=== PATIENT | male | born 1960 | race Caucasian/White ===

== ENCOUNTER 2025-01-20 10:51 | Emergency (ER) | payer MEDICARE ==
[~2025-01-20] VITALS: Ht 175.3 cm; Wt 90.7 kg
--- NOTE | 2025-01-20 11:08 | ERN ---
ED Note History of Present Illness Stated Complaint: NUMBNESS Chief Complaint: Numbness Time Seen by MD: 11:03 Time Seen by Midlevel: 11:05 Dictation: Mr. Malik is a 64 year old gentleman with history of HTN, CKD, and BPH (prostate surgery in [place] 3 months ago) who presented to the emergency department this morning for evaluation of headache. He reports headache and int ermittent right arm numbness which began Thursday after playing tennis. He attributed the symptoms to eat exhaustion. He states that symptoms persisted prompting him to come to the emergency department this morning. He states that he was told 2-3 years ago that he should start antihypertensive therapy but decided against it. He states that he is very healthy and works out daily. He denies use of alcohol, tobacco, or recreational drugs. He states he has no PCP and takes only supplements. He also mentions that he has had some heartburn at times. He denies fever, chills, shortness of breath, cough, chest pain, palpitations, edema, abdominal pain, nausea, vomiting, hematemesis, constipation, diarrhea, melena, hematochezia, dysuria, headache, dizziness, ataxia, dysarthria, dysphasia, vision changes or focal weakness. Allergies: Coded Allergies: No Known Drug Allergies (Unverified Allergy, Unknown, 01/20/25) Past Medical History Past Medical History: Hypertension, Other Additional Past Medical Hx: prostate, ckd Surgical History: Other Surgical History Other: prostate sx, hernia repair PSYCH History: no pertinent psych hx Social History: Negative, Lives alone RN Note Reviewed/Agreed w/PFSH: Yes Review of System Dictation REVIEW OF SYSTEMS: CONSTITUTIONAL: Patient denies fevers, chills, sweats and weight changes. EYES: Patient denies any visual symptoms. EARS, NOSE, AND THROAT: No difficulties with hearing. No symptoms of rhinitis or sore throat. CARDIOVASCULAR: Patient denies chest pains, palpitations, orthopnea and paroxysm al nocturnal dyspnea. Reports I repeated for pressure readings in states he has been told in the past that he should be on some antihypertensive medication. RESPIRATORY: No dyspnea on exertion, no wheezing or cough. GI: No nausea, vomiting, diarrhea, constipation, abdominal pain, hematochezia or melena. Reports occasional gastritis; "heart burn". : No urinary hesitancy or dribbling. No nocturia or urinary frequency. No abnormal urethral discharge. MUSCULOSKELETAL: No myalgias or arthralgias. NEUROLOGIC: No chronic headaches, no seizures. Patient denies tingling or weakn ess. Reports intermittent tingling to right arm. PSYCHIATRIC: Patient denies problems with mood disturbance. No problems with anxiety. ENDOCRINE: No excessive urination or excessive thirst. DERMATOLOGIC: Patient denies any rashes or skin changes. Initial Vital Sign VS Vital Signs Date Time Temp Pulse Resp B/P (MAP) Pulse Ox O2 Delivery O2 Flow Rate FiO2 01/20/25 10:57 97.5 90 16 198/99 100 Room Air 0 01/20/25 11:03 21 Physical Exam Dictation Vital signs: Reviewed. Afebrile Constitutional: No acute distress. Non-toxic appearing. Head/Face: Normocephalic, atraumatic. Eyes: Periorbital areas with no swelling, redness, or edema. Lids and lashes are normal. Conjunctival injection is absent. Sclera anicteric. Pupils equal, round, reactive to light. ENT: Pinnas intact and no signs of trauma or erythema. Ear canals clear and no discharge. TMs no erythema. No nasal discharge or bleeding noted. Oropharynx with no exudate, redness, swelling, masses, exudates, or evidence of obstruction. Uvula midline. Mucous membranes slightly dry Neck: Trachea midline, no masses palpated, and no cervical lymphadenopathy. No swelling. Supple, full range of motion. Chest/Axilla: No tenderness, no crepitus, no paradoxical movement, no retractions. Cardiovascular: Regular rate, regular rhythm, no murmur, no gallops. Symmetric pulses. No peripheral edema. Repeat BP 170/88. Twelve lead EKG reflects a sinus rhythm without ST elevation or depression. Respiratory: Respirations even and unlabored. Lung sounds clear; no wheezes, rales or rhonchi. Room air SpO2 99%. Gastrointestinal: Inspection is normal. No distention is appreciated. Bowel sounds are normal. No mass or organomegaly . There is no tenderness. No rebound. No rigidity. No voluntary or involuntary guarding. No Abbasi's sign. Neurological: Normal speech, gross motor function intact, gross sensory function intact. No focal weakness/Paresthesia. NIHSS=0 Musculoskeletal/Extremities: All extremities have full range of motion, no pain or tenderness on palpation. Symmetric pulses. Integumentary: Intact. Skin is normal color, warm and dry. Cap refill less than 3 seconds. Results (Laboratory/Radiology) Laboratory/Radiology Laboratory Tests Test 01/20/25 11:26 White Blood Count 8.8 K/uL (4.8-10.8) Red Blood Count 4.97 MIL/uL (4.50-6.20) Hemoglobin 13.9 g/dL (14.0-18.0) L Hematocrit 42.6 % (42-54) Mean Corpuscular Volume 85.7 fL (79-99) Mean Corpuscular Hemoglobin 28.0 pg (27.0-33.0) Mean Corpuscular Hemoglobin Concent 32.6 g/dL (32.0-36.0) Red Cell Distribution Width 13.9 % (11.0-15.5) Platelet Count 310 K/uL (130-400) Mean Platelet Volume 10.1 fL (7.5-10.5) Immature Granulocyte % (Auto) 0.3 % (0-1) Neutrophils (%) (Auto) 73.8 % (40.0-77.0) Lymphocytes (%) (Auto) 17.4 % (21.0-51.0) L Monocytes (%) (Auto) 6.3 % (3.0-13.0) Eosinophils (%) (Auto) 1.6 % (0.0-8.0) Basophils (%) (Auto) 0.6 % (0.0-5.0) Neutrophils # (Auto) 6.5 K/uL (1.8-7.7) Lymphocytes # (Auto) 1.5 K/uL (1.0-4.8) Monocytes # (Auto) 0.6 K/uL (0.1-1.0) Eosinophils # (Auto) 0.14 K/uL (0.00-0.70) Basophils # (Auto) 0.05 K/uL (0.00-0.20) Absolute Immature Granulocyte (auto 0.03 K/uL (0-1) Nucleated Red Blood Cells 0.0 % (0.0-0.19) Sodium Level 139 mmol/L (136-145) Potassium Level 4.1 mmol/L (3.5-5.1) Chloride Level 102 mmol/L (101-111) Carbon Dioxide Level 29 mmol/L (21-32) Blood Urea Nitrogen 19 mg/dL (7-18) H Creatinine 1.4 mg/dL (0.5-1.3) H Glomerular Filtration Rate Calc 55 mL/min (>90) Random Glucose 127 mg/dL (70-105) H Total Calcium 8.7 mg/dL (8.5-10.1) Total Bilirubin 0.9 mg/dL (0.2-1.0) Direct Bilirubin 0.1 mg/dL (0.0-0.3) Aspartate Amino Transf (AST/SGOT) 16 U/L (10-37) Alanine Aminotransferase (ALT/SGPT) 26 U/L (12-78) Alkaline Phosphatase 58 U/L (50-136) Troponin I High Sensitivity 10 ng/L (4-75) B-Type Natriuretic Peptide 16 pg/mL (0-100) Total Protein 7.3 g/dL (6.0-8.3) Albumin 3.7 g/dL (3.5-5.0) Labs Reviewed?: Yes EKG Comment: EKG Interpretation: Time Reviewed: 1114 Ventricular rate: 85 bpm OK Interval: 160 ms QRS duration: [address] segment elevation or depression. Clinical impression: Sinus rhythm EKG Reviewed and interpreted by Dr. Harkins X-RAY Comment: PATIENT: NATALY MALIK MR#: [id number] : 1960 SEX: M AGE: 64 LOCATION: [facility] ORDER 16 STATUS: REG REPORT#: [id number] SERVICE 111 REASON: sob ORDERING PHYSICIAN: MIO KIM NP PROCEDURE: CXR1VW - CHEST 1VW CHEST 1VW REASON: sob COMPARISON: None. FINDINGS: Single view of the chest was obtained. Lungs are clear. Heart size is normal. There is no pulmonary vascular congestion. Mediastinum and bony thorax appear unremarkable. IMPRESSION: 1. Normal single view chest x-ray. DICTATED BY: ANNA WEST MD DATE: 01/20/25 120 ELECTRONICALLY SIGNED BY: ANNA WEST MD DATE: 01/20/25 120 ED Course ED Course Orders Procedure Category Date Status Time 12 Lead Ekg Tracing- EKG 01/20/25 Complete Technical 11:06 Cbc With Differential LAB 01/20/25 Complete 11:06 Basic Metabolic Panel LAB 01/20/25 Complete 11:06 Hepatic Function Panel LAB 01/20/25 Complete 11:06 Troponin I High LAB 01/20/25 Complete Sensitivity 11:06 0.9% Nacl 500ml PHA 01/20/25 Complete Iv.Soln (Ns 500ml 11:30 B-Type Natriuretic LAB 01/20/25 Complete Peptide 11:06 Labetalol 20mg Syg PHA 01/20/25 Complete (Trandate 20mg Syg) 11:30 Urinalysis Profile LAB 01/20/25 Logged 11:15 Drug Screen Urine LAB 01/20/25 Logged 11:15 Chest 1vw RAD 01/20/25 Resulted 11:15 Current Medications Medications (Trade) Dose Ordered Sig/Allison Route PRN Reason Start Time Stop Time Status Last Admin Dose Admin Labetalol HCl (TRANdate 20MG SYG) 10 mg ONCE ONCE IV 01/20/25 11:30 01/20/25 11:17 DC Sodium Chloride 500 ml @ 0 mls/hr ONCE ONCE IV 01/20/25 11:30 01/20/25 11:17 DC Vital Signs Date Time Temp Pulse Resp B/P (MAP) Pulse Ox O2 Delivery O2 Flow Rate FiO2 01/20/25 11:14 97.7 81 12 170/88 99 Room Air* 0 21 01/20/25 11:03 97.5 90 16 198/99 100 Room Air* 0 21 01/20/25 10:57 97.5 90 16 198/99 100 Room Air 0 Uneventful ED course. Vital signs with downtrending blood pressure readings. Patient is calm/cooperative. Laboratory findings as noted below. No elevation of WBCs. H&H are stable. BUN/CR 19/1.4 (baseline unknown; history CKD), and glucose 127. Troponin negative. Twelve lead EKG reflects a sinus rhythm without ST elevation or depression. Chest x-ray unremarkable with clear lung yao. He continues to deny chest pain or shortness of breath. He denies focal paresthesia/weakness to extremities. Findings were discussed with patient and all questions were answered. Medical Decision Making MDM MDM: Differential diagnosis: hypertension, ACS, stroke Rationale: Tests considered and ordered secondary to shared decision making include: lab, xray, EKG Previous outside records reviewed: Old ER visits. Risk of complication and/or morbidity or mortality of patient management: None Medications-Per medication reconciliation Need for hospitalization: Patient does not meet criteria for hospitalization. Need for emergency major/minor surgery: No There are no social concerns with this patient. Prescription drug management: None Prescriptions will include symptomatic care Patient's prior external medical records from other ER visits were reviewed by me as indicated. Prior testing and results from previous visits were reviewed. Prior tests were taken into account with medical decision making and resource utilization, independent historian/historians were used to obtain complete medical history. I independently interpreted the test that were performed, results were reviewed by me and considered findings on radiology if ordered. Medical management and examination interpretation discussions were had by me with other qualified healthcare professionals as indicated for the patient's care. DX & DISP Disposition: Discharge Departure Impression: Primary Impression: Hypertension Condition: Stable Additional Instructions: You should schedule a follow up appointment with the primary care provider with in the next 3-5 days to evaluate and begin long-term blood pressure management. Avoid [id number] decongestants (like Sudafed color strainer phenylephrine) and stimulant supplements which can increase your blood pressure. Continue usual vitamin and supplement routine. If you use NSAIDs like ibuprofen minimize their use as these can worsen your kidney function and blood pressure. For occasional heartburn Pepcid 20 mg twice daily is fine. Check your blood pressure at least twice daily (morning and evening) at rest, using a home cuff. Record all your readings in a log book or phone mirian and bring this to your follow up appointment. Target home BP: Ideally less than 130/80. Reduce sodium intake (limit process in restaurant foods). Stay well hydrated, especially in hot weather. Continue regular exercise, but avoid strenuous activity and extreme heat. Maintain a healthy weight. Avoid alcohol and tobacco. Call 911 or go to the hospital if you experienced sudden numbness, weakness or tingling of the face, arm or leg. Trouble speaking or understanding. That vision change. Sudden severe headache, dizziness, or loss of balance Referrals: SELF,REFERRAL (PCP) Time of Disposition: 12:29 MIO KIM NP Jan 20, 2025 11:08
--- NOTE | 2025-01-20 11:20 | EKG ---
[facility] Test Date: 2025-01-20 Test Time: 11:15:22 Pat Name: NATALY MALIK Department: [facility] Room: Gender: M Imaging Aide: [facility]//student : 1960 Requested By: MIO KIM Order Number: [id number] Reading MD: Nataly Ohara Measurements Intervals Clifford Rate: 85 P: 62 NM: 160 QRS: 30 QRSD: 90 T: 3 QT: 366 QTc: 435 Interpretive Statements Sinus rhythm Probable left atrial enlargement No previous ECG available for comparison Electronically Signed On 01-20-2025 15:38:14 CDT by Nataly Ohara Please click the below link to view image of tracing.
[2025-01-20] MEDS ORDERED: 0.9% NACL 500ML IV.SOLN 500 ML IV ONE (11:30)
[2025-01-20 11:31] LABS: IMMATURE GRANULOCYTE ABSOLUTE 0.03 K/uL (0-1); NUCLEATED RED BLOOD CELLS 0.0 % (0.0-0.19); PLATELET COUNT (AUTO) 310 K/uL (130-400); RED BLOOD CELL COUNT(AUTO) 4.97 MIL/uL (4.50-6.20); RED CELL DISTRIBUTION WIDTH 13.9 % (11.0-15.5); WHITE BLOOD COUNT (AUTO) 8.8 K/uL (4.8-10.8)
[2025-01-20 11:51] LABS: ASPARTATE AMINOTRANSFERASE 16.0 U/L (10-37); CREATININE 1.4 mg/dL (0.5-1.3); GLOMERULAR FILTR. RATE CALC 55.0 mL/min (>90); GLUCOSE,RANDOM 127.0 mg/dL (70-105); SODIUM SERUM 139.0 mmol/L (136-145); TOTAL PROTEIN, SERUM 7.3 g/dL (6.0-8.3); UREA NITROGEN, BLOOD 19.0 mg/dL (7-18)
--- NOTE | 2025-01-20 12:04 | HMCIMG ---
CHEST 1VW REASON: sob COMPARISON: None. FINDINGS: Single view of the chest was obtained. Lungs are clear. Heart size is normal. There is no pulmonary vascular congestion. Mediastinum and bony thorax appear unremarkable. IMPRESSION: 1. Normal single view chest x-ray.
--- NOTE | 2025-01-20 12:54 | NUR ---
DC PATIENT WAS DC'D BY MIO KIM NP I EXPLAINED TO PATIENT TO FOLLOW UP WITH PCP, PROVIDED INFO BASED ON DIAGNOSIS, AND ANSWERED ANY FOLLOW UP QUESTIONS, BEFORE DC I CHECKED PATIENTS BP AND PATIENT STILL HAD AN ELEVATED BLOOD PRESSURE PRIOR TO DISCHARGE BUT PER MIO KIM NP, "PATIENT IS OKAY TO GO" PATIENT AMBULATED OUT OF ED, NO COMPLICATIONS
[2025-01-20 12:56] VITALS: BP 178/102; PULSE 74; RESP 19; TEMP 97; O2SAT 99
== END 2025-01-20 12:55 | disposition home or self-care (01) ==
LOC: EDH 10:51
DX: I12.9 Hypertensive chronic kidney disease with stage 1 through stage 4 chronic kidney disease, or unspecified chronic kidney disease (principal); N18.9 Chronic kidney disease, unspecified; Z98.890 Other specified postprocedural states
CPT/HCPCS: 36415; 71045; 80048; 80076; 83880; 84484; 85025; 93005; 99285